=== PATIENT | male | born 1990 | race African-American/Black ===

== ENCOUNTER 2024-08-25 13:41 | Emergency (ER) | payer OTHER, BC ==
--- NOTE | 2024-08-25 14:49 | EDPHYS ---
Physician Documentation [facility] Name: Jin Liu Age: 34 yrs Sex: Male : 1990 Arrival Date: 08/25/2024 Time: 13:41 Bed 12 Private MD: ED Physician Rigoberto Álvarez HPI: 08/25 14:42 This 34 yrs old Black Male presents to ER via Ambulatory with complaints of Hand Injury.dariusz 14:42 The patient or guardian reports a contusion, decreased range of motion, injury, a dariusz laceration. The complaints affect the left hand diffusely. Context: The problem was sustained at home, resulted from a crush injury. Onset: The symptoms/episode began/occurred just prior to arrival. Modifying factors: The symptoms are alleviated by holding still, the symptoms are aggravated by movement, dependent position. Associated signs and symptoms: The patient has no apparent associated signs or symptoms. Severity of symptoms: At their worst the symptoms were mild, in the emergency department the symptoms are unchanged. The patient has not experienced similar symptoms in the past. Historical: - Allergies: 14:00 No Known Allergies; cm10 - Home Meds: 14:00 None [Active]; cm10 - PMHx: 14:00 None; cm10 - PSHx: 14:00 None; cm10 - Immunization history:: Adult Immunizations up to date, Last tetanus immunization: unknown. - Infectious Disease History:: Denies. - Social history:: Smoking status: Patient denies any tobacco usage or history of. Patient/guardian denies using alcohol, street drugs. - Family history:: not pertinent. ROS: 14:42 Constitutional: Negative for fever, chills, and weight loss, Eyes: Negative for injury, dariusz pain, redness, and discharge, ENT: Negative for injury, pain, and discharge, Neck: Negative for injury, pain, and swelling, Cardiovascular: Negative for chest pain, palpitations, and edema, Respiratory: Negative for shortness of breath, cough, wheezing, and pleuritic chest pain, Abdomen/GI: Negative for abdominal pain, nausea, vomiting, diarrhea, and constipation, Back: Negative for injury and pain, : Negative for injury, bleeding, discharge, and swelling, Skin: Negative for injury, rash, and discoloration, Neuro: Negative for headache, weakness, numbness, tingling, and seizure, Psych: Negative for depression, anxiety, suicide ideation, homicidal ideation, and hallucinations, Allergy/Immunology: Negative for hives, rash, and allergies, Endocrine: Negative for neck swelling, polydipsia, polyuria, polyphagia, and marked weight changes, Hematologic/Lymphatic: Negative for swollen nodes, abnormal bleeding, and unusual bruising, 14:42 MS/extremity: Positive for abrasion, laceration, pain, tenderness, Exam: 14:42 Constitutional: This is a well developed, well nourished patient who is awake, alert, dariusz and in no acute distress. Head/Face: Normocephalic, atraumatic. Eyes: Pupils equal round and reactive to light, extra-ocular motions intact. Lids and lashes normal. Conjunctiva and sclera are non-icteric and not injected. Cornea within normal limits. Periorbital areas with no swelling, redness, or edema. ENT: Nares patent. No nasal discharge, no septal abnormalities noted. Tympanic membranes are normal and external auditory canals are clear. Oropharynx with no redness, swelling, or masses, exudates, or evidence of obstruction, uvula midline. Mucous membranes moist. Neck: Trachea midline, no thyromegaly or masses palpated, and no cervical lymphadenopathy. Supple, full range of motion without nuchal rigidity, or vertebral point tenderness. No Meningismus. Chest/axilla: Normal chest wall appearance and motion. Nontender with no deformity. No lesions are appreciated. Cardiovascular: Regular rate and rhythm with a normal S1 and S2. No gallops, murmurs, or rubs. Normal PMI, no JVD. No pulse deficits. Respiratory: Lungs have equal breath sounds bilaterally, clear to auscultation and percussion. No rales, rhonchi or wheezes noted. No increased work of breathing, no retractions or nasal flaring. Abdomen/GI: Soft, non-tender, with normal bowel sounds. No distension or tympany. No guarding or rebound. No evidence of tenderness throughout. Back: No spinal tenderness. No costovertebral tenderness. Full range of motion. Neuro: Awake and alert, GCS 15, oriented to person, place, time, and situation. Cranial nerves II-XII grossly intact. Motor strength 5/5 in all extremities. Sensory grossly intact. Cerebellar exam normal. Normal gait. Psych: Awake, alert, with orientation to person, place and time. Behavior, mood, and affect are within normal limits. 14:42 Skin: injury, abrasion(s), small abrasion noted, laceration(s), the wound is approximately .5 cm(s), with a depth of 0.05 cm(s), of the palmar aspect of proximal phalanx of left ring finger, Vital Signs: 13:58 BP 116 / 74; Pulse 77; Resp 15; Temp 98.4; Pulse Ox 98% on R/A; Weight 108.86 kg; cm10 Height 6 ft. 10 in. ; Pain 8/10; 13:58 Body Mass Index 25.09 (108.86 kg, 208.28 cm) cm10 13:58 Pain Scale: Adult cm10 MDM: 13:44 Medical Screening Exam initiated dariusz 14:46 Differential diagnosis: closed fracture, contusion, abrasion. Data reviewed: vital dariusz signs, nurses notes, radiologic studies, plain films. Consideration of Admission/Observation Escalation of care including admission/observation considered. I considered the following discharge prescriptions or medication management in the emergency department Medications were administered in the Emergency Department. See MAR. Independent interpretation of the following test(s) in the Emergency Department X-Ray: My interpretation is x ray , no fx , no fb. Test considered but Not performed: Labs: no labs. Care significantly affected by the following chronic conditions: none. 08/25 14:03 Order name: Hand Left 3 View XRAY [facility] 08/25 14:03 Order name: Wound Care; Complete Time: 15:31 [facility] 08/25 14:03 Order name: Wound dressing; Complete Time: 15:31 dariusz Administered Medications: 15:25 Drug: Boostrix Tdap IM 0.5 ml IM once; as a single dose Route: IM; Site: left deltoid; cm10 15:31 Follow up: Response: (VIS) Vaccine information sheet provided today. Questions and/or cm10 concerns addressed. VIS edition date: Feb 21, 2021. Disposition Summary: 08/25/24 14:48 Discharge Ordered Notes: Location: Home dariusz Problem: new dariusz Symptoms: have improved dariusz Condition: Stable dariusz Diagnosis - Pain in left hand dariusz - Abrasion of left hand - superfical laceration left hand 0.5 cm, not sutured dariusz Followup: dariusz - With: Private Physician - When: 2 - 3 days - Reason: Recheck today's complaints, Continuance of care, Re-evaluation by your physician Discharge Instructions: - Discharge Summary Sheet dariusz - Abrasion dariusz - Laceration Care, Adult dariusz - Musculoskeletal Pain dariusz - Contusion, [id number] dariusz - Laceration Care, Adult, [id number] dariusz - Abrasion, [id number] dariusz Forms: - Medication Reconciliation Form dariusz - Antibiotic Education dariusz - Prescription Opioid Use dariusz - Patient Portal Instructions dariusz - Leadership Thank You Letter dariusz - Work release form [id number] Prescriptions: - Neosporin ([id number]) 3.5mg-400 unit- 5,000 unit/gram Topical ointment - apply 1 application TOPICAL route 3 times per day; 15 gram tube; Refills: 0, dariusz Product Selection Permitted - Ibuprofen 600 mg Oral Tablet - take 1 tablet ORAL route every 6 hours As needed take with food; 30 tablet; dariusz Refills: 0, Product Selection Permitted Signatures: Dispatcher [employer] Rigoberto Reno MD MD cha Martinez, Clarissa, RN RN cm10
--- NOTE | 2024-08-25 14:49 | ER ---
Nurse's Notes [facility] Name: Jin Liu Age: 34 yrs Sex: Male : 1990 Arrival Date: 08/25/2024 Time: 13:41 Bed 12 Private MD: Diagnosis: Pain in left hand;Abrasion of left hand-superfical laceration left hand 0.5 cm, not sutured Presentation: 08/25 13:58 Chief complaint: Patient states: Pain to left hand. Pt states that he was at work and cm10 his left hand got slammed between the cell door and door frame. Pt noted to have laceration to bottom of ring finger and small cuts to his knuckles on 3rd and 4th digit. Coronavirus screen: Client denies travel out of the [place] in the last 14 days. Ebola Screen: Patient denies travel to an Ebola-affected area in the 21 days before illness onset. Initial Sepsis Screen: Does the patient meet any 2 criteria? No. Patient's initial sepsis screen is negative. Does the patient have a suspected source of infection? No. Patient's initial sepsis screen is negative. Risk Assessment: Do you want to hurt yourself or someone else? Patient reports no desire to harm self or others. Onset of symptoms was August 25, 2024. 13:58 Method Of Arrival: Ambulatory cm10 13:58 Acuity: GLYNN 4 cm10 Triage Assessment: 14:00 General: Appears in no apparent distress. comfortable, Behavior is calm, cooperative. cm10 Pain: Complains of pain in left ring finger. Neuro: No deficits noted. Level of Consciousness is awake, alert, obeys commands, Oriented to person, place, time, situation, Appropriate for age. Respiratory: No deficits noted. Airway is patent Respiratory effort is even, unlabored, Respiratory pattern is regular, symmetrical. 15:39 Musculoskeletal: Range of motion: intact in all extremities. ap3 Historical: - Allergies: 14:00 No Known Allergies; cm10 - Home Meds: 14:00 None [Active]; cm10 - PMHx: 14:00 None; cm10 - PSHx: 14:00 None; cm10 - Immunization history:: Adult Immunizations up to date, Last tetanus immunization: unknown. - Infectious Disease History:: Denies. - Social history:: Smoking status: Patient denies any tobacco usage or history of. Patient/guardian denies using alcohol, street drugs. - Family history:: not pertinent. Screenin:32 [facility] ED Fall Risk Assessment (Adult) History of falling in the last 3 months, cm10 including since admission No falls in past 3 months (0 pts) Confusion or Disorientation No (0 pts) Intoxicated or Sedated No (0 pts) Impaired Gait No (0 pts) Mobility Assist Device Used No (0 pt) Altered Elimination No (0 pt) Score/Fall Risk Level 0 - 2 = Low Risk Oriented to surroundings, Maintained a safe environment, Hourly rounding (assess needs \T\ fall precautionary measures) done. Abuse screen: Denies threats or abuse. Denies injuries from another. Nutritional screening: No deficits noted. Tuberculosis screening: No symptoms or risk factors identified. Vital Signs: 13:58 BP 116 / 74; Pulse 77; Resp 15; Temp 98.4; Pulse Ox 98% on R/A; Weight 108.86 kg; cm10 Height 6 ft. 10 in. ; Pain 8/10; 13:58 Body Mass Index 25.09 (108.86 kg, 208.28 cm) cm10 13:58 Pain Scale: Adult cm10 ED Course: 13:44 Patient arrived in ED. mr 13:44 Rigoberto Álvarez MD is Attending Physician. dariusz 14:00 Triage completed. cm10 14:00 Arm band placed on right wrist. Patient placed in waiting room. cm10 14:35 Hand Left 3 View XRAY In Process Unspecified. EDMS 15:31 No provider procedures requiring assistance completed. Patient did not have IV access cm10 during this emergency room visit. Wound care: to laceration located on palmar aspect of proximal phalanx of left ring finger and left ring finger was cleaned with dressed with Neosporin, cling. 15:32 Patient has correct armband on for positive identification. Provided Education on: cm10 Follow-up instructions. Administered Medications: 15:25 Drug: Boostrix Tdap IM 0.5 ml IM once; as a single dose Route: IM; Site: left deltoid; cm10 15:31 Follow up: Response: (VIS) Vaccine information sheet provided today. Questions and/or cm10 concerns addressed. VIS edition date: Feb 21, 2021. Medication: 15:31 Vaccine Information Statement (VIS) provided today. Questions and/or concerns cm10 addressed. VIS edition date: February 21, 2021. Outcome: 14:48 Discharge ordered by . dariusz 15:39 Discharged to home ambulatory, ap3 15:39 Condition: good 15:39 Discharge instructions given to patient, Instructed on discharge instructions, follow up and referral plans. medication usage, Demonstrated understanding of instructions, follow-up care, medications, Prescriptions given X 2, 15:40 Patient left the ED. ap3 Signatures: Dispatcher [employer] EDMD Rigoberto Álvarez MD MD cha Rivera, Mary, Reg Reg Lisa Cosme, RN RN ap3 Bria Sales RN RN cm10
--- NOTE | 2024-08-25 15:02 | RAD REPORT ---
Exam:Hand Left 3 View CLINICAL HISTORY: Left hand pain FINDINGS: No fracture or dislocation seen
[2024-08-25] MEDS ORDERED: TDAP (DIPHTH,PERTUSS(ACELL),TET VAC) 0.5 ML VIAL IMVAC ONE (15:20)
[2024-08-25 15:47] VITALS: BP 116/74; TEMP 98.4; O2SAT 98
== END 2024-08-25 15:40 | disposition home or self-care (01) ==
LOC: ER 13:41
DX: S61.412A Laceration without foreign body of left hand, initial encounter (principal); S60.512A Abrasion of left hand, initial encounter
CPT/HCPCS: 96372; 99284